=== PATIENT | male | born 1985 | race Caucasian/White ===

== ENCOUNTER 2019-03-12 10:15 | Day surgery (SDC) | payer BC ==
[~2019-03-12] VITALS: Ht 180.3 cm; Wt 65.6 kg
[2019-03-12] VITALS (15 sets, daily range): BP systolic 94–127; BP diastolic 38–75
[2019-03-12] MEDS ORDERED: INDOCYANINE GREEN 25 MG VIAL IV ONE (10:30)
[2019-03-12] MEDS ORDERED: cefazolin/dext.iso 2gm/100 ML IV ONE (10:35)
[2019-03-12] MEDS ORDERED: NO HOME MEDS (10:59)
[2019-03-12 11:37] LABS: BASOPHILS % (AUTO) 0.8 % (0-1); EOSINOPHILS # (AUTO) 0.2 X10'3 (0-0.9); EOSINOPHILS % (AUTO) 2.9 % (0-6); LYMPHOCYTES # (AUTO) 2.1 X10'3 (1.1-4.8); LYMPHOCYTES % (AUTO) 34.9 % (21-51); MEAN CORPUSCULAR HEMOGLOBIN 31.7 PG (27.0-31.0); MEAN CORPUSCULAR HGB CONC 35.2 g/dL (33.0-36.5); MEAN CORPUSCULAR VOLUME 89.9 FL (78-98); MEAN PLATELET VOLUME 8.6 FL (7.4-10.4); MONOCYTES # (AUTO) 0.5 X10'3 (0-0.9); MONOCYTES % (AUTO) 8.3 % (2-12); NEUTROPHILS # (AUTO) 3.2 X10'3 (1.8-7.7); NEUTROPHILS % (AUTO) 53.1 % (42-75); PRE OP HEMATOCRIT 41.8 % (42.0-52.0); PRE OP HEMOGLOBIN 14.7 g/dL (14.0-17.9); PRE OP PLATELET COUNT 220 X10'3 (140-440); RED BLOOD COUNT 4.65 X10'6 (4.70-6.10); RED CELL DISTRIBUTION WIDTH 12.4 % (11.5-14.5)
[2019-03-12] MEDS ORDERED: famotidine 20mg tablet PO ONE (11:48)
[2019-03-12 12:02] LABS: ALBUMIN 3.8 G/DL (3.4-5.0); ALBUMIN/GLOBULIN RATIO 1.1 (1.1-1.5); ALKALINE PHOSPHATASE 57 IU/L (46-116); BLOOD UREA NITROGEN 12 MG/DL (7-18); CALCIUM 8.4 MG/DL (8.5-10.1); CHLORIDE 107 MMOL/L (99-107); CREATININE 0.92 MG/DL (0.60-1.10); PRE OP ALT 22 U/L (30-65); PRE OP ANION GAP 6 (8-16); PRE OP AST 15 U/L (10-37); PRE OP BILIRUB, TOTAL 0.4 MG/DL (0.0-1.0); PRE OP GLUCOSE 79 MG/DL (70-104); PRE OP POTASSIUM 4.1 MMOL/L (3.4-5.1); PRE OP SODIUM 139 MMOL/L (135-145); TOTAL CARBON DIOXIDE 25.6 MMOL/L (24-32); TOTAL PROTEIN 7.2 G/DL (6.4-8.2); eGFR > 90 ML/MIN
[2019-03-12] MEDS ORDERED: BUPIVAcaine/PF 2.5 mg/ml (0.25%) 30ml vial ONE (12:23)
[2019-03-12] MEDS ORDERED: LIDOcaine 1% 30ml preserv. free vial ONE (12:23)
[2019-03-12] MEDS ORDERED: dexamethasone sod phosphate 10mg/ml inj ONE (13:31)
[2019-03-12] MEDS ORDERED: sevoflurane 250ml liquid IH ONE (13:31)
[2019-03-12] MEDS ORDERED: morphine 10mg/ml inj. ONE (13:47)
[2019-03-12] MEDS ORDERED: propofol inj 20 ML IV ONE (13:48)
[2019-03-12] MEDS ORDERED: ondansetron/PF 4mg/2ml inj ONE (13:48)
[2019-03-12] MEDS ORDERED: rocuronium 10mg/ml inj IV ONE (13:48)
[2019-03-12] MEDS ORDERED: LIDOcaine 2% (20mg/ml) 5ml vial ONE (13:48)
[2019-03-12] MEDS ORDERED: midazolam 2 mg/2 ml injection ONE (13:48)
[2019-03-12] MEDS ORDERED: ringers solution, lacted 1,000 ML IV SCH (14:07)
[2019-03-12] MEDS ORDERED: fentaNYL/PF 50MCG/1 ML 2ML syringe IV PRN ×2 (14:10)
[2019-03-12] MEDS ORDERED: morphine 4 MG/ML inj SYRINge IV PRN (14:10)
[2019-03-12] MEDS ORDERED: ondansetron/PF 4mg/2ml inj IV PRN (14:10)
[2019-03-12] MEDS ORDERED: hydrALAZINE 20mg/ml inj. IV PRN (14:10)
[2019-03-12] MEDS ORDERED: labetalol 20mg/4ml (5mg/ml) syringe IV PRN (14:10)
[2019-03-12] MEDS ORDERED: neostigmine methylsulfate 1 MG/ML 10ml vial ONE (14:37)
[2019-03-12] MEDS ORDERED: glycopyrrolate 0.2mg/ml inj ONE (14:38)
--- NOTE | 2019-03-12 14:52 | NUR ---
Received from OR via [facility], accompanied by Anesthesiologist DR TINSLEY and report given by Anesthesiologist. PT AGITATED, FLAILING AROUND IN BED, NOT ANSWERING ANY QUESTIONS, VSS, 3 LAP SITES W/BANDAIDS CDI, AFTER 10-15 MINUTES, PT NAUSEATED AND ANSWERS YES TO PAIN, 4 MG ZOFRAN GIVEN, 4 MG MORPHINE GIVEN W/IMPROVED RESULTS, NAUSEA SUBSIDED, PT RESTING W/EYES CLOSED, NO S/S OF DISTRESS/DISCOMFORT. Addendum: 03/12/19 at 1523 by Fely Michael RN Amended: Links added.
[2019-03-12] MEDS: morphine 4 MG/ML inj SYRINge IV PRN ×2 (15:09→15:28)
[2019-03-12] MEDS ORDERED: oxyCODONE/APAP 5-325mg tablet PO PRN ×2 (15:45→15:50)
[2019-03-12] MEDS ORDERED: ketorolac trometh. 30mg/ml inj. IV ONE (16:15)
== END 2019-03-12 17:02 | disposition home or self-care (01) ==
LOC: PAS 10:15
PROVIDERS: ATTEND Surgery
DX: K80.10 Calculus of gallbladder with chronic cholecystitis without obstruction (principal); Z98.890 Other specified postprocedural states; Z87.891 Personal history of nicotine dependence; Z87.01 Personal history of pneumonia (recurrent)
CPT/HCPCS: 36415; 47563; 80053; 85025; J0690; J1885; J2001; J2250; J2270; J2405; J2704; J2710; J3490; J7120; A7000; J1100